=== PATIENT | female | born 1955 | race African-American/Black ===

== ENCOUNTER 2017-07-25 11:38 | Emergency (ER) | payer SELFPAY ==
[2017-07-25 11:54] VITALS: PULSE 102; TEMP 98; BMI 30.2
[2017-07-25 11:57] LABS: URINE APPEARANCE Clear; URINE BILIRUBIN Negative (NEGATIVE); URINE BLOOD Negative (NEGATIVE); URINE GLUCOSE (UA) Negative (NEGATIVE); URINE KETONE Negative (NEGATIVE); URINE LEUK ESTERASE Negative (NEGATIVE); URINE NITRITE Negative (NEGATIVE); URINE PROTEIN Negative (NEGATIVE); URINE UROBILINOGEN 0.2 (0.2-1.0)
[2017-07-25 11:58] LABS: URINE COLOR YELLOW
--- NOTE | 2017-07-25 12:08 | PDOC ---
History of Present Illness - General Chief Complaint: Pain, Acute Stated Complaint: ABD PAIN Time Seen by Provider: 07/25/17 11:39 History Source: Patient Exam Limitations: No Limitations - History of Present Illness Initial Comments: 61 yo F history HTN presents with 3-4 days of constipation, nausea, vomiting x1 , nasal congestion, and cough. She denies any known sick contacts. She has had chills but did not check a temperature. Cough is nonproductive. She has had decreased appetite and PO intake for the past few days. Past History - Past Medical History Allergies/Adverse Reactions: Allergies Allergy/AdvReac Type Severity Reaction Status Date / Time No Known Allergies Allergy Verified 07/25/17 11:39 Home Medications: Ambulatory Orders Amlodipine Besylate [Norvasc -] 10 mg PO DAILY 07/25/17 Carvedilol [Coreg -] 25 mg PO ONCE 07/25/17 Ondansetron [Zofran -] 4 mg PO TID PRN #21 tablet 07/25/17 Oxycodone HCl/Acetaminophen [Percocet 5-325 mg Tablet] 1 tab PO Q6H PRN #12 tablet MDD 4 tabs 07/25/17 Ramipril [Altace] 10 mg PO DAILY 07/25/17 COPD: No HTN: Yes - Suicide/Smoking/Psychosocial Hx Smoking Status: No Smoking History: Never smoked Number of Cigarettes Smoked Daily: 0 Hx Alcohol Use: No Drug/Substance Use Hx: No Substance Use Type: None Review of Systems - Review of Systems Able to Perform ROS?: Yes Comments:: GENERAL/CONSTITUTIONAL: No fever, +chills. No weakness. HEAD, EYES, EARS, NOSE AND THROAT: No change in vision. No ear pain or discharge. No sore throat. CARDIOVASCULAR: No chest pain or shortness of breath. RESPIRATORY: +Cough. No wheezing or hemoptysis. GASTROINTESTINAL: No diarrhea. +Constipation. +Nausea with vomiting x1. GENITOURINARY: No dysuria, frequency, or change in urination. MUSCULOSKELETAL: No joint or muscle swelling or pain. No neck or back pain. SKIN: No rash NEUROLOGIC: No headache, vertigo, loss of consciousness, or change in strength/ sensation. ENDOCRINE: No increased thirst. No abnormal weight change. HEMATOLOGIC/LYMPHATIC: No anemia, easy bleeding, or history of blood clots. ALLERGIC/IMMUNOLOGIC: No hives or skin allergy. *Physical Exam - Vital Signs Last Vital Signs Temp Pulse Resp BP Pulse Ox 98.0 F 102 H 18 216/121 100 07/25/17 11:38 07/25/17 11:38 07/25/17 11:38 07/25/17 11:38 07/25/17 11:38 - Physical Exam Comments: GENERAL: Awake, alert, and fully oriented, in no acute distress. Well-appearing. HEAD: No signs of trauma EYES: PERRLA, EOMI, sclera anicteric, conjunctiva clear ENT: Auricles normal inspection, hearing grossly normal, nares patent, oropharynx clear without exudates. Dry mucosa NECK: Normal ROM, supple, no lymphadenopathy, JVD, or masses LUNGS: Breath sounds equal, clear to auscultation bilaterally. No wheezes, and no crackles HEART: Regular rate and rhythm, normal S1 and S2, no murmurs, rubs or gallops ABDOMEN: Soft, +RUQ and epigastric tendenress. Normoactive bowel sounds. No guarding, no rebound. No masses EXTREMITIES: Normal range of motion, no edema. No clubbing or cyanosis. No cords, erythema, or tenderness NEUROLOGICAL: Cranial nerves II through XII grossly intact. Normal speech, normal gait SKIN: Warm, Dry, normal turgor, no rashes or lesions noted. ED Treatment Course - LABORATORY CBC & Chemistry Diagram: 07/25/17 12:24 07/25/17 12:24 - ADDITIONAL ORDERS Additional order review: Laboratory Results 07/25/17 11:50 Urine Color Yellow Urine Appearance Clear Urine pH 6.0 Ur Specific [place] <= 1.005 Urine Protein Negative Urine Glucose (UA) Negative Urine Ketones Negative Urine Blood Negative Urine Nitrite Negative Urine Bilirubin Negative Urine Urobilinogen 0.2 Ur Leukocyte Esterase Negative Medical Decision Making - Medical Decision Making 07/25/17 12:13 Patient's BP elevated on arrival- she did not take her home meds prior to arrival. She took them after vitals taken in ED. DDx for her current symptoms includes ACS, biliary colic/acute ofelia, viral illness, flu. Will obtain bloodwork, ultrasound, CXR, and EKG. Will treat with IV fluids and antiemetics. 07/25/17 14:18 Case d/w Dr. Rudolph. Clinically, the patient does not appear to have acute ofelia , and the ultrasound reading shows stone possibly in neck, but no wall thickening. Possibly trace pericholecystic fluid on my read, however, not by radiology. Patient is well-appearing and tolerating PO, she would prefer to be discharged and f/u as outpatient this week to schedule elective cholecystectomy. *DC/Admit/Observation/Transfer Diagnosis at time of Disposition: Biliary colic - Discharge Dispostion Disposition: HOME Condition at time of disposition: Stable Admit: No - Prescriptions Prescriptions: Ondansetron [Zofran -] 4 mg PO TID PRN #21 tablet PRN Reason: Nausea And/Or Vomiting Oxycodone HCl/Acetaminophen [Percocet 5-325 mg Tablet] 1 tab PO Q6H PRN #12 tablet MDD 4 tabs PRN Reason: Severe Pain - Referrals Referrals: Satya Rudolph MD [Staff Physician] - - Patient Instructions Printed Discharge Instructions: DI for Gallstones Additional Instructions: Return to the ER immediately if you have persistent vomiting, worsening pain, or any other concerning symptoms. Otherwise please contact Dr. Rudolph's office on Thursday to schedule an appointment to schedule elective gallbladder surgery. - Post Discharge Activity
[2017-07-25] MEDS ORDERED: FAMOTIDINE 20 MG/50 ML IVPB 50 ML IVPB ONE (12:09)
[2017-07-25] MEDS ORDERED: SODIUM CHLORIDE 1,000 ML IV STA (12:09)
[2017-07-25] MEDS ORDERED: ONDANSETRON 4 MG/2 ML VIAL IVPUSH ONE (12:09)
[2017-07-25] MEDS ORDERED: FAMOTIDINE 20 MG/50 ML IVPB 20 MG/50 ML MG IVPB ONE ×2 (12:15→12:27)
[2017-07-25] MEDS ORDERED: ONDANSETRON 4 MG/2 ML VIAL ONE (12:27)
[2017-07-25 12:28] LABS: BASO % 3.9 % (0-2.0); EOS % 0.9 % (0-4.5); HEMATOCRIT 36.2 % (32.4-45.2); HEMOGLOBIN 12.1 GM/dl (10.7-15.3); LYMPH % 30.9 % (8-40); MCH 28.5 pg (25.7-33.7); MCHC 33.5 g/dl (32.0-36.0); MEAN CELL VOLUME 85.3 fl (80-96); MEAN PLT VOLUME 8.1 fl (7.5-11.1); MONO % 11.8 % (3.8-10.2); NEUT % 52.5 % (42.8-82.8); PLATELET COUNT 307 K/MM3 (134-434); RBC 4.24 M/mm3 (3.60-5.2); RDW 11.4 % (11.6-15.6); WHITE BLOOD COUNT 6.2 K/mm3 (4.0-10.8)
[2017-07-25 12:49] LABS: ALBUMIN 4.1 g/dl (3.5-5.0); ALK PHOS 72 U/L (32-92); ANION GAP 8 (8-16); BILIRUBIN,TOTAL 0.4 mg/dl (0.2-1.0); BLOOD UREA NITROGEN 12 mg/dl (7-18); CALCIUM 9.3 mg/dl (8.4-10.2); CHLORIDE 95 mmol/L (98-107); CO2 27 mmol/L (22-28); CREATININE 0.9 mg/dl (0.6-1.3); GLUCOSE,RANDOM 159 mg/dl (74-106); POTASSIUM 3.2 mmol/L (3.5-5.1); SGOT/AST 28 U/L (10-42); SGPT/ALT 46 U/L (10-40); SODIUM 130 mmol/L (136-145); TOT PROT 7.3 g/dl (6.4-8.3)
[2017-07-25 13:32] LABS: INR 1.15 (0.82-1.09); PROTHROMBIN TIME (PATIENT) 12.8 SEC (10.2-13.0)
[2017-07-25] MEDS ORDERED: KCL 10 MEQ IVPB 10 MEQ/100 ML INFUS.BAG IVPB ONE (13:35)
[2017-07-25] MEDS: KCL 10 MEQ IVPB 10 MEQ/100 ML INFUS.BAG IVPB SCH ×2 (13:40→14:37)
[2017-07-25 13:47] VITALS: BP 144/81
[2017-07-25] MEDS ORDERED: POTASSIUM CHLORIDE TABS 20 MEQ TABLET.ER (FP) PO ONE ×2 (14:19→14:24)
[2017-07-25 14:21] LABS: LIPASE 98 U/L (73-393)
--- NOTE | 2017-07-27 13:59 | EKG ---
Test Reason : Blood Pressure : / mmHG Vent. Rate : 080 BPM Atrial Rate : 080 BPM P-R Int : 158 ms QRS Dur : 100 ms QT Int : 368 ms P-R-T Axes : 081 000 033 degrees QTc Int : 424 ms NORMAL SINUS RHYTHM NORMAL ECG NO PREVIOUS ECGS AVAILABLE Confirmed by BABS GLYNN MD ([id number] on 07/27/2017 1:58:51 PM Referred By: SUZANNE JONES Confirmed By:BABS GLYNN MD
== END 2017-07-25 14:37 | disposition home or self-care (01) ==
LOC: FER 11:38
PROC: 3E033GC Introduction of Other Therapeutic Substance into Peripheral Vein, Percutaneous Approach (ICD-10-PCS; principal; 2017-07-25)
PROC: 3E0337Z Introduction of Electrolytic and Water Balance Substance into Peripheral Vein, Percutaneous Approach (ICD-10-PCS; 2017-07-25)
DX: K80.50 Calculus of bile duct without cholangitis or cholecystitis without obstruction (principal); I10 Essential (primary) hypertension
CPT/HCPCS: 36415; 71045-TC; 76705-TC; 80053; 81003; 82550; 83690; 84484; 85025; 85610; 86850; 86900; 86901; 87086; 93005; 99283-25